=== PATIENT | male | born 1985 | race Caucasian/White ===

== ENCOUNTER → 2018-02-02 12:12 | Outpatient (CLI) | payer OTHER, SELFPAY | PROVIDERS: Visit Provider Physician Assistant | DX: J34.89 Other specified disorders of nose and nasal sinuses (principal); J02.9 Acute pharyngitis, unspecified | CPT/HCPCS: 87070; 87797 ==

== ENCOUNTER → 2018-03-15 18:48 | Outpatient (CLI) | payer OTHER, SELFPAY ==
--- NOTE | 2018-03-15 18:52 | DI.MRI.S_ITS ---
PROCEDURE: MR CERVICAL SPINE WO CON INDICATIONS: CERVICAL RADICULOPATHY TECHNIQUE: Noncontrast sagittal T1 spin echo and T2 fast spin echo, sagittal STIR, foraminal oblique sagittal T2 fast spin echo, and axial gradient echo or T2 fast spin echo through the cervical spine. COMPARISON: None. FINDINGS: Image quality: Excellent. Alignment and Curvature: There is normal bony alignment. Bone Marrow: Marrow demonstrates normal overall signal. Spinal Cord: Visualized spinal cord has normal size and signal. No cerebellar tonsillar herniation. Paraspinous Soft Tissues: No paravertebral masses. Prevertebral soft tissues are normal in thickness. C2-C3: Loss of disc signal. Mild, diffuse disc bulge. No central stenosis. No neural foraminal narrowing. No neural impingement. C3-C4: Loss of disc signal. Mild, diffuse disc bulge. No central stenosis. No neural foraminal narrowing. No neural impingement. C4-C5: Loss of disc signal. Mild, diffuse disc bulge. No central stenosis. No neural foraminal narrowing. No neural impingement. C5-C6: Loss of disc signal. Moderate, diffuse disc bulge. Left foraminal disc protrusion superimposed upon diffuse disc bulge. Mild to moderate narrowing of the central canal. Mild right and jcmeikmd-gt-ugncuy left neural foraminal narrowing with slight flattening deformity exiting left C6 nerve root. No neural impingement. C6-C7: Loss of disc signal and slight loss of disc height. Moderate, diffuse disc bulge. Mild to moderate narrowing of the central canal. Mild bilateral uncovertebral joint hypertrophy. Severe bilateral neural foraminal narrowing with slight flattening deformity exiting C7 nerve roots. C7-T1: Normal appearance. IMPRESSION: 1. Multilevel degenerative disc disease. 2. Mild bilateral C6-C7 uncovertebral joint hypertrophy. 3. Mild to moderate C5-C6 and C6-C7 central canal narrowing. 4. Severe bilateral C6-C7 neural foraminal narrowing. Mild right and llmxauum-zf-ghshyq left C5-C6 neural foraminal narrowing. 5. Slight flattening deformity of the exiting left C6 nerve root and the exiting bilateral C7 nerve roots secondary to neural foraminal narrowing. Please correlate with clinical data. Dictated by: Rhonda Pyle MD, PhD on 03/15/2018 at 20:15 Approved by: Rhonda Pyle MD, PhD on 03/15/2018 at 20:20
== END ==
PROVIDERS: Visit Provider Family Medicine
DX: M50.11 Cervical disc disorder with radiculopathy, high cervical region (principal); M48.02 Spinal stenosis, cervical region
CPT/HCPCS: 72141

== ENCOUNTER 2023-11-20 20:48 | Emergency (ER) | payer OTHER, SELFPAY ==
[2023-11-20] VITALS (7 sets, daily range): BP systolic 131–168; BP diastolic 66–94; PULSE 52–79; RESP 16–23; TEMP 36.1; O2SAT 96–99; BMI 27.5
--- NOTE | 2023-11-20 22:15 | ED.HA ---
HPI - Headache General Chief Complaint: Headache Stated Complaint: migraine Time Seen by Provider: 11/20/23 22:15 History of Present Illness HPI Narrative: (this duplicate chart made in error, see completed note same date/time) Related Data Allergies Allergy/AdvReac Type Severity Reaction Status Date / Time No Known Drug Allergies Allergy Verified 11/20/23 20:50 Patient History Social History Smoking Status: Never smoker substance use type: marijuana (Edibles and occasional smoking ) Smoking Status: Never smoker alcohol intake frequency: 3 or more drinks per day Substance Use Type: marijuana Exam Initial Vital Signs Initial Vital Signs: Vital Signs Temperature 97.0 F L 11/20/23 20:50 Pulse Rate 70 11/20/23 20:50 Respiratory Rate 17 11/20/23 20:50 Blood Pressure 168/94 H 11/20/23 20:50 Pulse Oximetry 96 11/20/23 20:50 Oxygen Delivery Method Room Air 11/20/23 20:50 Course Orders Ordered: ED Orders 11/20/23 22:45 CT head/brain wo con Stat 11/20/23 22:58 CT angio head and neck Stat 11/20/23 23:03 CBC Auto Diff [Complete Blood Count AUTO DIFF] Stat CMP [Comprehensive Metabolic Panel] Stat Prothrombin Time INR Stat Discontinued Medications Dexamethasone (Dexamethasone 10 Mg/Ml Vial) 10 mg IV NOW ONE Stop: 11/20/23 22:48 Last Admin: 11/20/23 23:07 Dose: 10 mg Documented By: YARELIS Diphenhydramine HCl (Diphenhydramine 50 Mg/Ml Vial) 25 mg IV NOW ONE Stop: 11/20/23 22:48 Sodium Chloride (Normal Saline 0.9%) 1,000 mls @ 1,000 mls/hr IV BOLUS ONE Stop: 11/20/23 23:46 Last Infusion: 11/21/23 00:11 Dose: Infused Documented By: Admin: 11/20/23 23:13 Dose: 1,000 mls/hr Documented By: YARELIS Levetiracetam 1,000 mg/ Sodium (Chloride) 110 mls @ 440 mls/hr IV NOW ONE Stop: 11/20/23 23:24 Last Infusion: 11/21/23 00:03 Dose: Infused Documented By: Admin: 11/20/23 23:47 Dose: 440 mls/hr Documented By: YARELIS Ketorolac Tromethamine (Ketorolac 30 Mg/Ml Vial) 30 mg IV NOW ONE Stop: 11/20/23 22:48 Last Admin: 11/20/23 23:02 Dose: 30 mg Documented By: YARELIS Prochlorperazine (Prochlorperazine 10 Mg/2 Ml Vial) 10 mg IV NOW ONE Stop: 11/20/23 22:48 Last Admin: 11/20/23 22:58 Dose: 10 mg Documented By: YARELIS Vital Signs Vital signs: Vital Signs - 8 hr 11/20/23 20:50 11/20/23 22:58 11/20/23 23:01 Temperature 97.0 F L Pulse Rate 70 76 Respiratory Rate 17 Blood Pressure 168/94 H 131/70 131/70 Pulse Oximetry 96 Oxygen Delivery Method Room Air 11/20/23 23:01 11/20/23 23:21 11/20/23 23:21 Temperature Pulse Rate 79 70 Respiratory Rate Blood Pressure 144/81 H Pulse Oximetry 99 98 Oxygen Delivery Method 11/20/23 23:30 11/20/23 23:30 11/20/23 23:40 Temperature Pulse Rate 52 L Respiratory Rate 16 Blood Pressure 137/75 134/66 Pulse Oximetry 96 Oxygen Delivery Method 11/20/23 23:40 11/20/23 23:50 11/20/23 23:50 Temperature Pulse Rate 52 L 73 Respiratory Rate 16 23 Blood Pressure 151/70 H Pulse Oximetry 96 98 Oxygen Delivery Method 11/21/23 00:00 11/21/23 00:10 11/21/23 00:10 Temperature Pulse Rate 53 L 47 L Respiratory Rate 17 16 Blood Pressure 135/76 Pulse Oximetry 96 96 Oxygen Delivery Method 11/21/23 00:20 11/21/23 00:20 11/21/23 00:30 Temperature Pulse Rate 50 L Respiratory Rate 16 Blood Pressure 127/70 127/71 Pulse Oximetry 95 Oxygen Delivery Method 11/21/23 00:30 11/21/23 00:40 11/21/23 00:40 Temperature Pulse Rate 54 L 67 Respiratory Rate 17 17 Blood Pressure 139/81 Pulse Oximetry 96 97 Oxygen Delivery Method 11/21/23 00:58 Temperature Pulse Rate 80 Respiratory Rate 16 Blood Pressure 139/81 Pulse Oximetry 98 Oxygen Delivery Method Room Air [facility] Headache Lab Data 11/20/23 23:03 11/20/23 23:03 Labs: Lab Results 11/20/23 Range/Units 23:03 WBC 7.8 (4.5-11.0) X10^3/uL RBC 4.77 (4.5-5.9) X10^6/uL Hgb 14.9 (13.5-17.5) g/dL Hct 43.1 (41-53) % MCV 90.4 (80-100) fL MCH 31.2 (26-34) PG MCHC 34.5 (30-36) % RDW 13.2 (11.6-14.8) % Plt Count 206 (150-400) X10^3/uL Neut % (Auto) 69.3 (50-75) % Lymph % (Auto) 20.6 L (25-40) % [place] % (Auto) 9.5 (3-14) % Eos % (Auto) 0.4 L (2-4) % Baso % (Auto) 0.2 (0-2) % Neut # (Auto) 5400 (0218-6111) /uL Lymph # (Auto) 1600 (1522-6443) /uL [place] # (Auto) 700 (0-900) /uL Eos # (Auto) 0 (0-450) /uL Baso # (Auto) 0 (0-100) /uL PT 11.9 (9.4-12.5) SECONDS INR 1.0 (0.9-1.3) Sodium 139 (137-145) mmol/L Potassium 3.9 (3.4-5.1) mmol/L Chloride 106 (98-107) mmol/L Carbon Dioxide 28 (22-32) mmol/L BUN 10 (9-20) mg/dL Creatinine 0.80 (0.66-1.25) mg/dL Estimated GFR > 60 (>60) mL/min BUN/Creatinine Ratio 12.5 (6-22) Glucose 108 H (70-100) mg/dL Calcium 8.5 (8.4-10.2) mg/dL Total Bilirubin 0.6 (0.2-1.3) mg/dL AST 35 (17-59) IU/L ALT 35 (<50) IU/L Alkaline Phosphatase 63 (38-126) U/L Total Protein 6.9 (6.3-8.2) g/dL Albumin 4.3 (3.5-5.0) g/dL Globulin 2.6 (1.7-4.1) g/dL Albumin/Globulin Ratio 1.7 (1.0-2.8) Point of Care Testing Glucose POC 92 Discharge Plan Departure Patient Disposition: [facility] Clinical Impression: Acute intracerebral hemorrhage, Headache, Subarachnoid hemorrhage Referrals: Miscellaneous,DoctorMD [Primary Care Provider] -
--- NOTE | 2023-11-20 22:15 | ED.HA ---
HPI - Headache General Chief Complaint: Headache Stated Complaint: migraine Time Seen by Provider: 11/20/23 22:15 Mode of arrival: Ambulatory History of Present Illness HPI Narrative: 38-year-old male with left sided periorbital and top of head headache since yesterday morning, onset after intercourse, proximally 5 minutes after ejaculation, went to stand up and then felt acute onset of headache, has persisted since that time. He takes no blood thinner medications. No masses or tumors known in the head, no aneurysms or AVMs known. Did not have any fall or blunt head injury. No weakness to face arms or legs. No numbness to face arm or legs. He gets rare headaches once or twice yearly, none recent. No recent fevers chills cough shortness of breath sore throat symptoms abdominal pain diarrhea. No household members with similar symptoms. He has tried ibuprofen and Excedrin, little relief. He has nausea but no emesis. Some photophobia as well. Some degree of neck pain Related Data Allergies Allergy/AdvReac Type Severity Reaction Status Date / Time No Known Drug Allergies Allergy Verified 11/20/23 20:50 Review of Systems Review of Systems ROS Unobtainable: All systems reviewed & are unremarkable except as noted in HPI and below Patient History Social History Smoking Status: Never smoker substance use type: marijuana (Edibles and occasional smoking ) Smoking Status: Never smoker alcohol intake frequency: 3 or more drinks per day Substance Use Type: marijuana Exam Narrative Exam Narrative: GENERAL: Well-developed patient, in mild distress. HEAD: Atraumatic. Normocephalic. EYES: Pupils equal round and reactive. Extraocular motions intact. No scleral icterus. No injection or drainage. ENT: Nose without bleeding, purulent drainage. Throat without erythema, tonsillar hypertrophy or exudate. Airway patent. NECK: Trachea midline. Non tender. Can move neck well, chin to chest, lateral rotation of the right, lateral rotation of the left CARDIOVASCULAR: Regular rate and rhythm without murmurs, gallops, or rubs. RESPIRATORY: Clear to auscultation. Breath sounds equal bilaterally. No wheezes, rales, or rhonchi. GASTROINTESTINAL: Abdomen soft, non-tender, nondistended. EXTREMITIES: No edema or joint tenderness. BACK: Nontender without deformity or crepitance. No flank tenderness. NEURO: AOx3. Clear speech. Cranial nerves 2-12 intact, pupils equal round reactive to light, extraocular muscles intact. Supple neck able to flex and extend, and rotate laterally without apparent difficulty. Motor 5/5 symmetrical upper extremities and lower extremities. Intact to light touch facial nerve distributions, neck, upper extremities, lower extremities. Mtdcdz-gw-lwyk testing normal. Confrontational pearce normal. SKIN: No rash or erythema of visible areas Initial Vital Signs Initial Vital Signs: Vital Signs Temperature 97.0 F L 11/20/23 20:50 Pulse Rate 70 11/20/23 20:50 Respiratory Rate 17 11/20/23 20:50 Blood Pressure 168/94 H 11/20/23 20:50 Pulse Oximetry 96 11/20/23 20:50 Oxygen Delivery Method Room Air 11/20/23 20:50 Course Orders Ordered: ED Orders 11/20/23 22:45 CT head/brain wo con Stat 11/20/23 22:58 CT angio head and neck Stat 11/20/23 23:03 CBC Auto Diff [Complete Blood Count AUTO DIFF] Stat CMP [Comprehensive Metabolic Panel] Stat Prothrombin Time INR Stat Discontinued Medications Dexamethasone (Dexamethasone 10 Mg/Ml Vial) 10 mg IV NOW ONE Stop: 11/20/23 22:48 Last Admin: 11/20/23 23:07 Dose: 10 mg Documented By: YARELIS Diphenhydramine HCl (Diphenhydramine 50 Mg/Ml Vial) 25 mg IV NOW ONE Stop: 11/20/23 22:48 Sodium Chloride (Normal Saline 0.9%) 1,000 mls @ 1,000 mls/hr IV BOLUS ONE Stop: 11/20/23 23:46 Last Infusion: 11/21/23 00:11 Dose: Infused Documented By: Admin: 11/20/23 23:13 Dose: 1,000 mls/hr Documented By: YARELIS Levetiracetam 1,000 mg/ Sodium (Chloride) 110 mls @ 440 mls/hr IV NOW ONE Stop: 11/20/23 23:24 Last Infusion: 11/21/23 00:03 Dose: Infused Documented By: Admin: 11/20/23 23:47 Dose: 440 mls/hr Documented By: YARELIS Ketorolac Tromethamine (Ketorolac 30 Mg/Ml Vial) 30 mg IV NOW ONE Stop: 11/20/23 22:48 Last Admin: 11/20/23 23:02 Dose: 30 mg Documented By: YARELIS Prochlorperazine (Prochlorperazine 10 Mg/2 Ml Vial) 10 mg IV NOW ONE Stop: 11/20/23 22:48 Last Admin: 11/20/23 22:58 Dose: 10 mg Documented By: YARELIS Vital Signs Vital signs: Vital Signs - 8 hr 11/20/23 20:50 11/20/23 22:58 11/20/23 23:01 Temperature 97.0 F L Pulse Rate 70 76 Respiratory Rate 17 Blood Pressure 168/94 H 131/70 131/70 Pulse Oximetry 96 Oxygen Delivery Method Room Air 11/20/23 23:01 11/20/23 23:21 11/20/23 23:21 Temperature Pulse Rate 79 70 Respiratory Rate Blood Pressure 144/81 H Pulse Oximetry 99 98 Oxygen Delivery Method 11/20/23 23:30 11/20/23 23:30 11/20/23 23:40 Temperature Pulse Rate 52 L Respiratory Rate 16 Blood Pressure 137/75 134/66 Pulse Oximetry 96 Oxygen Delivery Method 11/20/23 23:40 11/20/23 23:50 11/20/23 23:50 Temperature Pulse Rate 52 L 73 Respiratory Rate 16 23 Blood Pressure 151/70 H Pulse Oximetry 96 98 Oxygen Delivery Method 11/21/23 00:00 11/21/23 00:10 11/21/23 00:10 Temperature Pulse Rate 53 L 47 L Respiratory Rate 17 16 Blood Pressure 135/76 Pulse Oximetry 96 96 Oxygen Delivery Method 11/21/23 00:20 11/21/23 00:20 11/21/23 00:30 Temperature Pulse Rate 50 L Respiratory Rate 16 Blood Pressure 127/70 127/71 Pulse Oximetry 95 Oxygen Delivery Method 11/21/23 00:30 11/21/23 00:40 11/21/23 00:40 Temperature Pulse Rate 54 L 67 Respiratory Rate 17 17 Blood Pressure 139/81 Pulse Oximetry 96 97 Oxygen Delivery Method 11/21/23 00:58 Temperature Pulse Rate 80 Respiratory Rate 16 Blood Pressure 139/81 Pulse Oximetry 98 Oxygen Delivery Method Room Air MDM - Headache Lab Data 11/20/23 23:03 11/20/23 23:03 Labs: Lab Results 05/18/24 Range/Units 23:03 WBC 7.8 (4.5-11.0) X10^3/uL RBC 4.77 (4.5-5.9) X10^6/uL Hgb 14.9 (13.5-17.5) g/dL Hct 43.1 (41-53) % MCV 90.4 (80-100) fL MCH 31.2 (26-34) PG MCHC 34.5 (30-36) % RDW 13.2 (11.6-14.8) % Plt Count 206 (150-400) X10^3/uL Neut % (Auto) 69.3 (50-75) % Lymph % (Auto) 20.6 L (25-40) % [place] % (Auto) 9.5 (3-14) % Eos % (Auto) 0.4 L (2-4) % Baso % (Auto) 0.2 (0-2) % Neut # (Auto) 5400 (0645-0645) /uL Lymph # (Auto) 1600 (0193-1167) /uL [place] # (Auto) 700 (0-900) /uL Eos # (Auto) 0 (0-450) /uL Baso # (Auto) 0 (0-100) /uL PT 11.9 (9.4-12.5) SECONDS INR 1.0 (0.9-1.3) Sodium 139 (137-145) mmol/L Potassium 3.9 (3.4-5.1) mmol/L Chloride 106 (98-107) mmol/L Carbon Dioxide 28 (22-32) mmol/L BUN 10 (9-20) mg/dL Creatinine 0.80 (0.66-1.25) mg/dL Estimated GFR > 60 (>60) mL/min BUN/Creatinine Ratio 12.5 (6-22) Glucose 108 H (70-100) mg/dL Calcium 8.5 (8.4-10.2) mg/dL Total Bilirubin 0.6 (0.2-1.3) mg/dL AST 35 (17-59) IU/L ALT 35 (<50) IU/L Alkaline Phosphatase 63 (38-126) U/L Total Protein 6.9 (6.3-8.2) g/dL Albumin 4.3 (3.5-5.0) g/dL Globulin 2.6 (1.7-4.1) g/dL Albumin/Globulin Ratio 1.7 (1.0-2.8) Point of Care Testing Glucose POC [address] scan - head: Radiologist's Impression: [address] [address] [address] Scan Report Signed Patient: René Lopez MR#: [id number] : 1985 Acct:[id number] Age/Sex: 38 / M Date of Service: 11/20/23 Loc: ED Accession Number: [id number] Procedure: CT head/brain wo con Ordering Provider: Jason Cervantes MD PROCEDURE: CT HEAD/BRAIN WO CON INDICATIONS: R/O brain bleed/headache TECHNIQUE: Noncontrast 4.5 mm thick angled axial sections acquired from the foramen magnum to the vertex, with coronal and sagittal reformats. For radiation dose reduction, the following was used: automated exposure control, adjustment of mA and/or kV according to patient size. COMPARISON: None. FINDINGS: Image quality: Diagnostic. CSF spaces: There is subarachnoid hemorrhage layering in the basal cisterns along the anterior carissa and into the 4th ventricle posteriorly. The epicenter of the hyperdensity appears to correspond to a right anterior cerebellar artery. There is no significant hydrocephalus, however temporal lobe tips are slightly prominent and there is possible trace hemorrhage in the left. No other extra-axial fluid collections. Brain: No midline shift. No intracranial masses or hemorrhage. Pierce-white matter interface is normal. Skull and face: Calvarium and visualized facial bones are intact, without suspicious lesions. Sinuses: Visualized sinuses and mastoids are clear. IMPRESSION: Acute subarachnoid hemorrhage within the basal cistern arising from the posterior circulation, likely a right cerebellar branch. Slight prominence of the lateral ventricle temporal lobe tips, but no significant hydrocephalus. Findings called to Dr. Jason Cervantes at 23:17 hours. Dictated by: Karen Rae M.D. on 11/20/2023 at 23:13 Approved by: Karen Rae M.D. on 11/20/2023 at 23:26 CTA Head and Neck: Radiologist's Impression: [address] [address] [address] Scan Report Signed Patient: René Lopez MR#: [id number] : 1985 Acct:[id number] Age/Sex: 38 / M Date of Service: 11/20/23 Loc: ED Accession Number: [id number] Procedure: CT angio head and neck Ordering Provider: Jason Cervantes MD PROCEDURE: CT ANGIO HEAD AND NECK INDICATIONS: HEADACHE OVER 24 WITH NAUSEA TECHNIQUE: After the administration of intravenous contrast, 1 mm thick sections acquired from the aortic arch through the [place] of [place]. 3-dimensional abkmvpa-bzgwwusfg-vbjllzmcxb (MIP) and/or volume rendering reformats were acquired of the central intracranial vasculature and neck separately. For radiation dose reduction, the following was used: automated exposure control, adjustment of mA and/or kV according to patient size. COMPARISON: None. FINDINGS: Image quality: Diagnostic. BRAIN: CSF spaces: There is acute hemorrhage in the cerebellum medullary and cerebellopontine cisterns. Small amount of hemorrhage in the interpeduncular cistern and caudal in the 4th ventricle. Hemorrhage can be seen extending into the foramen magnum. There is trace hemorrhage in the left lateral ventricle temporal horn. No significant hydrocephalus. Brain: No significant abnormality of the brain can be seen. Skull and face: Calvarium and facial bones appear intact, without suspicious lesions. Orbits appear normal. Sinuses: Sinuses and mastoids are clear. HEAD CT ANGIOGRAPHY: Anterior circulation: Intracranial internal carotid arteries are normal in size and flow. The flow within the paired anterior cerebral arteries is normal and symmetric. The flow within the middle cerebral arteries is normal and symmetric. The anterior communicating artery is seen. No aneurysms are seen. Posterior circulation: Visualized portions of the vertebral arteries are normal caliber. Posterior inferior cerebellar arteries arise from vertebral arteries and appear normal. Anterior inferior cerebellar arteries are not well seen. The right superior cerebellar artery branches and surrounds what may be an aneurysm measuring 1.0 x 0.8 cm. Flow within the posterior cerebral arteries is normal and symmetric. NECK CT ANGIOGRAPHY: Carotid system: The great vessels demonstrate a conventional anatomy as they arise from the aortic arch. The origins of the common carotid arteries appear patent. The common carotid arteries demonstrate normal caliber and courses. The bifurcation regions are both widely patent. The internal carotid arteries demonstrate normal calibers and courses. Posterior circulation: The origins of the vertebral arteries both appear widely patent. The more superior extracranial portions of both vertebral arteries also demonstrate normal courses and calibers. They join to form a normal appearing basilar artery. Soft tissues: Visualized neck soft tissues demonstrate no suspicious abnormalities. Bones: No suspicious bony lesions. Visualized cervical spine appears normally aligned. 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 There is acute hemorrhage in the cerebellar cisterns and 4th ventricle without significant hydrocephalus. No significant abnormality is seen within the arteries of the neck. Any quantitative measurements of stenosis were performed using NASCET criteria. Dictated by: Karen Rae M.D. on 11/20/2023 at 23:41 Approved by: Karen Rae M.D. on 11/20/2023 at 23:57 [facility] Narrative Medical decision making narrative: 38-year-old male with acute onset of headache frontal left periorbital top of head yesterday approximately 5 minutes after intercourse/ejaculation, upon standing. No focal weakness. No seizure activity. Persisting pain despite oral analgesic medications. Some photophobia. Some neck pain. Headache cocktail treatment initiated with Decadron, fluids, Compazine, Benadryl, Toradol. CT head noncontrast study requested. If noncontrast CT head negative, we will obtain CTA head and neck vessels. 232, phone call from Radiology, Dr. Rae, who believes there is a posterior circulation acute hemorrhage present on noncontrast CT scan imaging, she is still looking at the angio studies but so far does not see any gross aneurysm but suspect there must be an aneurysmal bleed somewhere. Keep NPO. Systolic blood pressure 130s is less than 140, no Cardene for now. We will give IV Keppra to prevent seizures from irritative hemorrhage focus. Send labs including coags. Transfer to Neurosurgery capable facility [id number], case discussed with Dr. Shepard neurology [facility], accepts patient for admission to the emergency department for further consultation with neurology and neurosurgery as needed Critical Care Time Critical Care Time Critical Care Time: Yes Total Critical Care Time: 35 Attestation: The high probability of a clinically significant, sudden or life threatening deterioration of the [neurology, neurosurgical] system(s) required my full and direct attention, intervention and personal management. The aggregate critical care time was [35] minutes. This time is in addition to time spent performing reported procedures but includes the following: [x] Data Review and interpretation [x] Patient assessment and monitoring of vital signs [x] Documentation [x] Medication orders and management Discharge Plan Departure Patient Disposition: [facility] Clinical Impression: Acute intracerebral hemorrhage, Headache, Subarachnoid hemorrhage Referrals: Miscellaneous,MD Pierce [Primary Care Provider] -
--- NOTE | 2023-11-20 22:45 | DI.CT.S_ITS ---
PROCEDURE: CT HEAD/BRAIN WO CON INDICATIONS: R/O brain bleed/headache TECHNIQUE: Noncontrast 4.5 mm thick angled axial sections acquired from the foramen magnum to the vertex, with coronal and sagittal reformats. For radiation dose reduction, the following was used: automated exposure control, adjustment of mA and/or kV according to patient size. COMPARISON: None. FINDINGS: Image quality: Diagnostic. CSF spaces: There is subarachnoid hemorrhage layering in the basal cisterns along the anterior carissa and into the 4th ventricle posteriorly. The epicenter of the hyperdensity appears to correspond to a right anterior cerebellar artery. There is no significant hydrocephalus, however temporal lobe tips are slightly prominent and there is possible trace hemorrhage in the left. No other extra-axial fluid collections. Brain: No midline shift. No intracranial masses or hemorrhage. Pierce-white matter interface is normal. Skull and face: Calvarium and visualized facial bones are intact, without suspicious lesions. Sinuses: Visualized sinuses and mastoids are clear. IMPRESSION: Acute subarachnoid hemorrhage within the basal cistern arising from the posterior circulation, likely a right cerebellar branch. Slight prominence of the lateral ventricle temporal lobe tips, but no significant hydrocephalus. Findings called to Dr. Jason Cervantes at 23:17 hours. Dictated by: Karen Rae M.D. on 11/20/2023 at 23:13 Approved by: Karen Rae M.D. on 11/20/2023 at 23:26
[2023-11-20] MEDS: PROCHLORPERAZINE 10 MG/2 ML VIAL IV (22:58)
--- NOTE | 2023-11-20 22:58 | DI.CT.S_ITS ---
PROCEDURE: CT ANGIO HEAD AND NECK INDICATIONS: HEADACHE OVER 24 WITH NAUSEA TECHNIQUE: After the administration of intravenous contrast, 1 mm thick sections acquired from the aortic arch through the [place]. 3-dimensional shvdgnv-cvppdykfx-kuqjcpzusc (MIP) and/or volume rendering reformats were acquired of the central intracranial vasculature and neck separately. For radiation dose reduction, the following was used: automated exposure control, adjustment of mA and/or kV according to patient size. COMPARISON: None. FINDINGS: Image quality: Diagnostic. BRAIN: CSF spaces: There is acute hemorrhage in the cerebellum medullary and cerebellopontine cisterns. Small amount of hemorrhage in the interpeduncular cistern and caudal in the 4th ventricle. Hemorrhage can be seen extending into the foramen magnum. There is trace hemorrhage in the left lateral ventricle temporal horn. No significant hydrocephalus. Brain: No significant abnormality of the brain can be seen. Skull and face: Calvarium and facial bones appear intact, without suspicious lesions. Orbits appear normal. Sinuses: Sinuses and mastoids are clear. HEAD CT ANGIOGRAPHY: Anterior circulation: Intracranial internal carotid arteries are normal in size and flow. The flow within the paired anterior cerebral arteries is normal and symmetric. The flow within the middle cerebral arteries is normal and symmetric. The anterior communicating artery is seen. No aneurysms are seen. Posterior circulation: Visualized portions of the vertebral arteries are normal caliber. Posterior inferior cerebellar arteries arise from vertebral arteries and appear normal. Anterior inferior cerebellar arteries are not well seen. The right superior cerebellar artery branches and surrounds what may be an aneurysm measuring 1.0 x 0.8 cm. Flow within the posterior cerebral arteries is normal and symmetric. NECK CT ANGIOGRAPHY: Carotid system: The great vessels demonstrate a conventional anatomy as they arise from the aortic arch. The origins of the common carotid arteries appear patent. The common carotid arteries demonstrate normal caliber and courses. The bifurcation regions are both widely patent. The internal carotid arteries demonstrate normal calibers and courses. Posterior circulation: The origins of the vertebral arteries both appear widely patent. The more superior extracranial portions of both vertebral arteries also demonstrate normal courses and calibers. They join to form a normal appearing basilar artery. Soft tissues: Visualized neck soft tissues demonstrate no suspicious abnormalities. Bones: No suspicious bony lesions. Visualized cervical spine appears normally aligned. 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 There is acute hemorrhage in the cerebellar cisterns and 4th ventricle without significant hydrocephalus. No significant abnormality is seen within the arteries of the neck. Any quantitative measurements of stenosis were performed using NASCET criteria. Dictated by: Karen Rae M.D. on 11/20/2023 at 23:41 Approved by: Karen Rae M.D. on 11/20/2023 at 23:57
[2023-11-20] MEDS: KETOROLAC 30 MG/ML VIAL IV (23:02)
[2023-11-20] MEDS: DEXAMETHASONE 10 MG/ML VIAL IV (23:07)
[2023-11-20] MEDS: SODIUM CHLORIDE 0.9% 1,000 ML 1000 ML IV (23:13)
[2023-11-20 23:26] LABS: Add Manual Diff / Slide Review NO; Basophils Absolute Auto 0 /uL (0-100); Basophils Percent Auto 0.2 % (0-2); Eosinophils Absolute Auto 0 /uL (0-450); Eosinophils Percent Auto 0.4 % (2-4); Hematocrit 43.1 % (41-53); Hemoglobin 14.9 g/dL (13.5-17.5); Lymphocytes Absolute Auto 1600 /uL (1100-4500); Lymphocytes Percent Auto 20.6 % (25-40); Mean Corpuscular HGB Conc 34.5 % (30-36); Mean Corpuscular Hemoglobin 31.2 PG (26-34); Mean Corpuscular Volume 90.4 fL (80-100); Monocytes Absolute Auto 700 /uL (0-900); Monocytes Percent Auto 9.5 % (3-14); Neutrophils Absolute Auto 5400 /uL (1500-7000); Neutrophils Percent Auto 69.3 % (50-75); Platelet Count 206 X10^3/uL (150-400); Red Blood Cell Count 4.77 X10^6/uL (4.5-5.9); Red Cell Distribution Width 13.2 % (11.6-14.8); White Blood Cell Count 7.8 X10^3/uL (4.5-11.0)
[2023-11-20 23:28] LABS: Prothrombin Time 11.9 SECONDS (9.4-12.5)
[2023-11-20 23:33] LABS: Alanine Aminotransferase 35 IU/L (<50); Albumin 4.3 g/dL (3.5-5.0); Albumin Globulin Ratio 1.7 (1.0-2.8); Alkaline Phosphatase 63 U/L (38-126); Aspartate Aminotransferase 35 IU/L (17-59); BUN Creatinine Ratio 12.5 (6-22); Bilirubin Total 0.6 mg/dL (0.2-1.3); Blood Urea Nitrogen 10 mg/dL (9-20); Calcium 8.5 mg/dL (8.4-10.2); Carbon Dioxide 28 mmol/L (22-32); Chloride 106 mmol/L (98-107); Estimated Glomerular Filt Rate > 60 mL/min (>60); Globulin 2.6 g/dL (1.7-4.1); Glucose 108 mg/dL (70-100); HEMOLYSIS < 15 (0-50); Potassium 3.9 mmol/L (3.4-5.1); Sodium 139 mmol/L (137-145); Total Protein 6.9 g/dL (6.3-8.2)
[2023-11-20] MEDS: levETIRAcetam 1,000 MG in SODIUM CHLORIDE 0.9% 100 ML 440 MG IV (23:47)
[2023-11-21] VITALS: PULSE 53; RESP 17; O2SAT 96
[2023-11-21 00:10] VITALS: BP 135/76; PULSE 47; RESP 16; O2SAT 96
[2023-11-21 00:20] VITALS: BP 127/70; PULSE 50; RESP 16; O2SAT 95
[2023-11-21 00:30] VITALS: BP 127/71; PULSE 54; RESP 17; O2SAT 96
[2023-11-21 00:40] VITALS: BP 139/81; PULSE 67; RESP 17; O2SAT 97
[2023-11-21 00:58] VITALS: BP 139/81; PULSE 80; RESP 16; O2SAT 98
== END 2023-11-21 00:55 | disposition short-term general hospital (02) ==
PROVIDERS: Emergency Provider Emergency Medicine
DX: I61.9 Nontraumatic intracerebral hemorrhage, unspecified (principal); I60.9 Nontraumatic subarachnoid hemorrhage, unspecified; R11.0 Nausea; R51.9 Headache, unspecified
CPT/HCPCS: 36415; 70450; 70496; 70498; 80053; 82962; 85025; 85610; 96365; 96375; 99284; 99291; J0780; J1100; J1885; J1953; Q9967

== ENCOUNTER → 2025-04-25 19:03 | Outpatient (CLI) | payer OTHER, SELFPAY ==
--- NOTE | 2025-04-25 19:04 | DI.MRI.S_ITS ---
PROCEDURE: MR KNEE LT WO CON INDICATIONS: left knee pain TECHNIQUE: Noncontrast sagittal PD fast spin echo and T2 fast spin echo with fat saturation, sagittal 3-D FLASH with fat saturation; coronal T1 spin echo and PD fast spin echo with fat saturation, and axial PD fast spin echo with fat saturation through the knee. COMPARISON: None. FINDINGS: Image quality: Excellent. Some images are limited by metallic susceptibility artifacts, patient motion and other artifacts. Menisci: Abnormal appearance of the medial meniscus diffusely with diminutive size of the anterior and posterior horns, suspected free edge fraying of the mid body and linear horizontal tear of the midbody and posterior horn extends to the superior surface and the medial margin. On coronal images the medial meniscus is mildly displaced medially. Heterogeneous signal extends into the meniscal root ligaments most notably anteriorly. Heterogeneous signal extends into the anterior horn of the lateral meniscus with suspicion of vertical oriented or oblique tear of the posterior horn of the lateral meniscus as well. Mild posterior meniscocapsular separation medial and lateral with small 5 mm parameniscal cysts. Cruciate ligaments: Anterior cruciate ligament graft repair appears intact. There are some nonspecific heterogeneous signal changes in the distal aspect into the tibial tunnel but with intact fibers without complete tear or retraction. Posterior cruciate ligament appears intact. Medial structures: Mild increased medial bursal fluid. Mild signal changes/edema adjacent to the medial collateral ligament without tear or retraction possible grade 1 injury. Mild tendinopathy distal semimembranosus tendon insertions. Visualized portions of the pes anserinus tendons appear normal. Lateral structures: Mild increased lateral bursal fluid adjacent to the popliteus tendon and the proximal aspect of the lateral collateral ligament with mild thickening, mild injury/strain. The long and short heads of the biceps femoris tendon appear intact. The popliteus tendon appears normal. Iliotibial band appears normal. Anterior structures: Mild tendinopathy with increased T2 weighted signal and thickening distal quadriceps tendon. Bifid variant of the patellar ligament which is intact without tear or retraction. Patellar alignment is normal. No femoral trochlear dysplasia or ventral trochlear prominence. No significant edema in the infrapatellar fat pad. Bones and cartilage: No focal cartilage defect. Mild diffuse thinning and some irregularity in the medial and lateral compartments greater than patellofemoral compartment with tricompartmental osteophytes, degenerative changes Kellgren Shoaib grade 3. Mild subchondral edema and subchondral cysts noted in the posterior aspect of the medial tibial plateau plateau most likely related to degenerative changes without distinct fracture line or bone contusion. Joint space: Mild knee joint effusion. No significant popliteal cyst. IMPRESSION: Abnormal appearance of the medial meniscus as discussed above. Possible vertical tear of the posterior horn of the lateral meniscus and heterogeneous signal in the anterior horn of the lateral meniscus and anterior meniscal root ligament. Degenerative changes as discussed above. ACL graft with some cystic changes otherwise intact. Knee joint effusion. Other findings as above. Dictated by: Erwin Ingram M.D. on 04/26/2025 at 13:19 Approved by: Erwin Ingram M.D. on 04/26/2025 at 13:38
== END ==
LOC: MRI 19:04
PROVIDERS: PCP Nurse Practitioner Family; Referring Provider Physician Assistant Surgical; Visit Provider Physician Assistant Surgical
DX: M23.92 Unspecified internal derangement of left knee (principal); M25.462 Effusion, left knee; M25.762 Osteophyte, left knee
CPT/HCPCS: 73721

== ENCOUNTER → 2025-05-07 16:14 | Outpatient (CLI) | payer OTHER, SELFPAY ==
[2025-05-07 17:27] LABS: Cholesterol 190 mg/dL (140-199); HDL Cholesterol 47 mg/dL (40-60); Triglycerides 184 mg/dL (35-150)
== END ==
PROVIDERS: PCP Nurse Practitioner Family; Referring Provider Nurse Practitioner Family; Visit Provider Nurse Practitioner Family
DX: Z13.220 Encounter for screening for lipoid disorders (principal)
CPT/HCPCS: 36415; 80061

== ENCOUNTER 2025-05-08 08:07 | Day surgery (SDC) | payer OTHER, SELFPAY ==
[2025-05-07 12:10] VITALS: BMI 29.1
[2025-05-08 08:37] VITALS: BP 138/88; PULSE 79; RESP 17; TEMP 36.8; O2SAT 97
[2025-05-08] MEDS: LACTATED RINGERS 1,000 ML 42 ML IV ×2 (08:39→10:49)
[2025-05-08] MEDS: ACETAMINOPHEN 325 MG TABLET 975 MG PO (08:39)
--- NOTE | 2025-05-08 09:03 | P.OP.PRE_ITS ---
Pre-operative Note
--- NOTE | 2025-05-08 09:03 | PM.PREOP ---
Pre-operative Note COVID-19 Result date/Date tested (Pos, Neg/Pending): 05/08/25 Interval Note History & Physical reviewed/Exam performed by Physician: Yes Changes to H&P: No
--- NOTE | 2025-05-08 10:00 | SUR.OPER ---
Supine on padded OR bed, head on pillow, arms secured on padded arm boards at <90 degrees abduction, legs uncrossed, safety belt at waist, tape over blanket over non-operative leg. Arthroscopic knee positioner and hip bump in place to operative leg. Surgeon approved final position prior to start of case.
[2025-05-08 11:00] VITALS: BP 119/66; PULSE 78; RESP 12; TEMP 36.2; O2SAT 94
[2025-05-08 11:05] VITALS: BP 122/66; PULSE 79; RESP 14; O2SAT 96
[2025-05-08 11:10] VITALS: BP 132/71; PULSE 82; RESP 18; O2SAT 95
[2025-05-08 11:15] VITALS: BP 136/69; PULSE 84; RESP 13; O2SAT 94
--- NOTE | 2025-05-08 11:15 | P.OP_ITS ---
Operative Date/Time/Diagnoses
--- NOTE | 2025-05-08 11:15 | PM.OP.1 ---
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; previous debridement of the medial meniscus Specimen(s): none sent Applied: none Estimated Blood Loss (mL): 20 Blood products transfused: none Tourniquet time (min): 54 Procedure in detail: Date of Operation: 05/08/25 Preoperative diagnosis: Lateral Meniscal Tear, possible medial meniscus tear and medial compartment chondromalacia Procedure performed: Lateral Meniscal Repair Postoperative diagnosis: Lateral Meniscal Tear, no medial meniscus tear but he has grade 2 and 3 chondromalacia in the medial compartment Primary Surgeon: Erwin Hoffman MD Secondary Surgeon: BALBIR Paz Physician Bomb Technician was used throughout the entirety of the case. They assisted with room set up, patient positioning, draping, retraction, reduction, fixation and closure. They were essential for the success of the case. Anesthesia: General EBL: 20 ml Tourniquet: 54 minutes @ 250 mmHg Implants: 2 Arthrex Fiberstich Indication For Surgery: Patient presents to the orthopedic clinic with knee pain and mechanical symptoms. They have failed non-operative treatment and want to move forward with operative management. The risks, benefits, and alternatives were discussed. Risks include pain, bleeding, infection, damage to nearby structures and cartilage, lack of symptom relief, need for further surgery, DVT, PE, stroke, and . Written consent was obtained. Examination Under Anesthesia: ROM equal to the contralateral side. Normal Hum[place] & pivot shift Stable to varus and valgus stressing at 0 & 30 degrees. Stable dial at 30 & 90 degrees. No mechanical sensations Diagnostic Arthroscopy: Loose bodies: None Synovium: Moderate synovitis Patella cartilage: Grade 2 chondromalacia Trochlear cartilage: Grade 2 chondromalacia Medial femoral condyle cartilage: Grade 2 and 3 chondromalacia Medial tibial plateau cartilage: Grade 2 and 3 chondromalacia Medial meniscus: Prior meniscal debridement, root is stable, no new meniscal tears ACL: Intact PCL: Intact Lateral femoral condyle cartilage: Intact, no chondromalacia Lateral tibial plateau cartilage: Intact, no chondromalacia Lateral meniscus: Unstable lateral meniscus tear. The root was stable. The meniscus appeared healthy however it was unstable and could be pulled fully into the joint. Procedure in Detail: The patient was met in the pre-operative hold area. Consent was verified and operative extremity was signed. The patient then met with anesthesia and was brought back to the operating room. The patient was placed supine on the operating table. A general anesthetic and IV antibiotics were administered. A well-padded tourniquet was placed on the thigh. The lower extremity was then prepped and draped in the usual sterile fashion. A timeout was performed per protocol. All were in agreement and we proceeded. The Esmarch was used to exsanguinate the limb and the tourniquet was elevated. An 11 blade scalpel was used to make an anterolateral arthroscopic portal. The arthroscope was introduced into the knee and the anteromedial portal was created under direct visualization using needle localization. A diagnostic arthroscopy was performed with the above-stated findings. I then proceeded to debride the minor fraying that was in the posterior horn of the lateral meniscus. Then we utilized to fiber stitches to secure the lateral meniscus back to the capsule. This was tested with a probe and the meniscus remained stable. The portals were closed with 3-0 nylon. Local anesthetic was placed. A sterile dressing was applied. The patient was awakened and transferred to the recovery room in stable condition. Postoperative Plan: Same day discharge Non Weight Bearing Keep leg locked in extension ASA to start POD1. ASA for DVT prophylaxis for 4 weeks Remove dressing in [address] bandaids Physical therapy to start after surgery Do not submerge wound until 4 weeks Follow up at 2 weeks for suture removal. Erwin Hoffman MD Complications: none Post-operative Condition: stable Disposition: PACU
[2025-05-08 11:25] VITALS: BP 136/77; PULSE 76; RESP 16; TEMP 36.3; O2SAT 97
== END 2025-05-08 12:37 | disposition home or self-care (01) ==
PROVIDERS: PCP Nurse Practitioner Family; Referring Provider Nurse Practitioner Family; Visit Provider Orthopaedic Surgery
PROC: (CPT 29870; principal; 2025-05-08 09:45)
DX: S83.282A Other tear of lateral meniscus, current injury, left knee, initial encounter (principal); M94.262 Chondromalacia, left knee; Z87.891 Personal history of nicotine dependence
CPT/HCPCS: 29882; C1776; C1713; J0689; J1885; J2250; J2405; J2704; J3010; J7120